=== PATIENT | female | born 1940 | race Caucasian/White ===

== ENCOUNTER → 2017-01-09 | Outpatient (CLI) | payer MEDICARE, OTHER ==
[~2017-01-09] MED LIST: AMLO1CAP PO; ASPI-496 PO; CHOL100015 PO; CHOL2000 PO; REGADENOSON 0.4 MG/5 ML SYRINGE ONE; RISE150T3 PO
== END | disposition home or self-care (01) ==
LOC: CFH 06:59
PROVIDERS: ATTEND Internal Medicine Cardiovascular Disease
DX: I10 Essential (primary) hypertension (principal)
CPT/HCPCS: 78452; 93017; 93306; A9502; J2785

== ENCOUNTER 2018-01-21 21:01 | Inpatient (IN) | payer MEDICARE, OTHER ==
[~2018-01-21] VITALS: Ht 157.5 cm; Wt 72.7 kg
[~2018-01-21 21:01] MED LIST changes: -REGADENOSON 0.4 MG/5 ML SYRINGE ONE
[2018-01-21] MEDS ORDERED: MORPHINE SULFATE 4 MG/ML, 1ML ONE (21:22)
[2018-01-21] MEDS ORDERED: ONDANSETRON ODT 4 MG ONE (21:22)
[2018-01-21] MEDS ORDERED: MORPHINE SULFATE 4 MG/ML, 1ML IVPush PRN (21:30)
[2018-01-21] MEDS ORDERED: ONDANSETRON ODT 4 MG PO ONE (21:30)
[2018-01-21] MEDS ORDERED: SODIUM CHLORIDE FLUSH 10ML SYR IVF ONE (21:30)
[2018-01-21] MEDS ORDERED: PROPOFOL 10 MG/ML, 20ML ONE (22:27)
[2018-01-21 23:28] LABS: BASOPHILS % (AUTO) 1 % (0-1); EOSINOPHILS # (AUTO) 0.14 x10^3/uL (0-0.4); EOSINOPHILS % (AUTO) 1 % (1-7); LYMPHOCYTES # (AUTO) 4.67 x10^3/uL (1-3.4); LYMPHOCYTES % (AUTO) 49 % (22-44); MD NO; MEAN CORPUSCULAR HEMOGLOBIN 31.5 pg (27.0-34.8); MEAN CORPUSCULAR HGB CONC 33.2 g/dL (32.4-35.8); MEAN CORPUSCULAR VOLUME 95.1 fL (80-100); MONOCYTES # (AUTO) 0.69 x10^3/uL (0.2-0.8); MONOCYTES % (AUTO) 7 % (2-9); NEUTROPHILS # (AUTO) 3.97 x10^3/uL (1.8-6.8); NEUTROPHILS % (AUTO) 42 % (42-75); PLATELET COUNT 239 x10^3/uL (130-400); RED CELL DISTRIBUTION WIDTH 14.2 % (9.6-15.2)
[2018-01-21 23:37] LABS: ANION GAP 12 mmol/L (5-15); CHLORIDE 108 mmol/L (98-107); CREATININE 1.04 mg/dL (0.55-1.02)
[2018-01-22 00:37] VITALS: BP 131/80
[2018-01-22 03:37] VITALS: BP 114/73
[2018-01-22] MEDS ORDERED: POTASSIUM CHLORIDE 20 MEQ TAB.ER.PRT PO ONE (07:30)
[2018-01-22 07:35] VITALS: BP 115/73
[2018-01-22] MEDS ORDERED: AMLODIPINE 5 MG TABLET PO SCH (09:00)
[2018-01-22] MEDS ORDERED: ASPIRIN 81 MG TABLET EC PO SCH (09:00)
[2018-01-22] MEDS ORDERED: BENAZEPRIL 20 MG TABLET PO SCH (09:00)
== END 2018-01-22 11:39 | disposition home or self-care (01) | DRG 562 ==
LOC: ED 21:49 → EDIP 23:38 → 4WST 01-22 00:31
PROVIDERS: ADMIT Hospitalist; ATTEND Hospitalist
PROC: 0RSKXZZ Reposition Left Shoulder Joint, External Approach (ICD-10-PCS; principal; 2018-01-21)
DX: S42.295A Other nondisplaced fracture of upper end of left humerus, initial encounter for closed fracture (principal); J96.01 Acute respiratory failure with hypoxia; I10 Essential (primary) hypertension; S01.81XA Laceration without foreign body of other part of head, initial encounter; S43.005A Unspecified dislocation of left shoulder joint, initial encounter; W01.0XXA Fall on same level from slipping, tripping and stumbling without subsequent striking against object, initial encounter; Z90.710 Acquired absence of both cervix and uterus; Z90.49 Acquired absence of other specified parts of digestive tract; Z90.722 Acquired absence of ovaries, bilateral; Y93.89 Activity, other specified; Y92.89 Other specified places as the place of occurrence of the external cause; Y99.8 Other external cause status
CPT/HCPCS: 23655; 36415; 70450; 71045; 72125; 80048; 82040; 85025; 96374; 99152; 99153; Q0162

== ENCOUNTER → 2020-09-24 | Outpatient (CLI) | payer MEDICARE | END | disposition home or self-care (01) | LOC: CFH 06:46 | PROVIDERS: ATTEND Internal Medicine Cardiovascular Disease | DX: I34.8 Other nonrheumatic mitral valve disorders (principal); I10 Essential (primary) hypertension; I25.10 Atherosclerotic heart disease of native coronary artery without angina pectoris; E78.2 Mixed hyperlipidemia | CPT/HCPCS: 78452; 93017; 93306; 93356; A9502 ==